=== PATIENT | female | born 1985 | race Caucasian/White ===

== ENCOUNTER 2020-11-05 10:26 | Emergency (ER) | payer OTHER ==
[~2020-11-05] VITALS: Ht 172.7 cm; Wt 77.1 kg
[2020-11-05] MEDS ORDERED: PRENATAL 19 CH1 EACH (10:51)
[2020-11-05] MEDS ORDERED: SINGULAIR10 MG (10:51)
== END 2020-11-05 17:14 | disposition home or self-care (01) ==
LOC: ER 10:26
DX: O03.1 Delayed or excessive hemorrhage following incomplete spontaneous abortion (principal); Z3A.08 8 weeks gestation of pregnancy

== ENCOUNTER 2021-05-11 08:36 | Outpatient (CLI) | payer OTHER ==
[~2021-05-11 08:36] MED LIST: PRENATAL 19 CH1 EACH; SINGULAIR10 MG
== END 2021-05-11 08:39 | disposition home or self-care (01) ==
LOC: SONOGRAMA 08:36
PROVIDERS: ATTEND Pathology Anatomic Pathology & Clinical Pathology
DX: E04.1 Nontoxic single thyroid nodule (principal)

== ENCOUNTER 2022-12-31 05:59 | Day surgery (SDC) | payer OTHER ==
[~2022-12-31 05:59] MED LIST changes: +PROAIR RESPICL90 MCG IH
== END 2022-12-31 15:20 | disposition home or self-care (01) ==
LOC: CIR.AMB 05:59
PROVIDERS: ATTEND Student in an Organized Health Care Education/Training Program
DX: N87.1 Moderate cervical dysplasia (principal); N72 Inflammatory disease of cervix uteri; Z20.822 Contact with and (suspected) exposure to COVID-19; Z88.6 Allergy status to analgesic agent